=== PATIENT | female | born 1955 | race African-American/Black ===

== ENCOUNTER 2018-10-10 12:29 | Inpatient (IN) | payer OTHER ==
[~2018-10-10] VITALS: Ht 162.6 cm; Wt 102.1 kg
[2018-10-10 13:25] LABS: BASOPHILS % 0.5 % (0.0-2.0); EOSINOPHILS % 1.4 % (0.0-5.0); HEMATOCRIT. 35.6 % (36.0-48.0); HEMOGLOBIN. 12.6 g/dL (12.0-16.0); LYMPHOCYTES % 39.5 % (20.0-50.0); MEAN CORPUSCULAR HEMOGLOBIN 28.7 pg (28.0-32.0); MEAN CORPUSCULAR VOLUME 81.4 fL (81.0-99.0); MEAN PLATELET VOLUME 10.2 fl (7.4-10.4); MONOCYTES % 5.4 % (2.0-8.0); NEUTROPHILS % 53.2 % (40.0-76.0); PLATELET 116 x1000/uL (130-400); RED BLOOD CELL COUNT 4.37 mill/uL (4.2-5.4); RED CELL DISTRIBUTION WIDTH 14.4 % (11.6-14.6)
[2018-10-10 13:32] LABS: PROTHROMBIN TIME 10.1 sec (9.6-11.0)
[2018-10-10 13:39] LABS: CHLORIDE 111 mEq/L (98-107)
[2018-10-10 13:43] LABS: ETHANOL BLOOD < 10 mg/dL
[2018-10-10] MEDS ORDERED: ASPIRIN 325MG TABLET PO ONE (15:45)
[2018-10-10 16:10] LABS: CLARITY URINE CLEAR (CLEAR); COLOR URINE YELLOW (YELLOW); KETONES URINE NEGATIVE (NEGATIVE); LEUKOCYTE ESTERASE URINE 1+ (NEGATIVE); NITRITE URINE NEGATIVE (NEGATIVE); OCCULT BLOOD URINE NEGATIVE (NEGATIVE); PH URINE 7.5 (4.5-8.0); PROTEIN URINE NEGATIVE (NEGATIVE); SPECIFIC GRAVITY URINE 1.021 (1.005-1.030)
[2018-10-10] MEDS ORDERED: CLONIDINE 0.1MG TABLET PO PRN (16:15)
[2018-10-10] MEDS ORDERED: ACETAMINOPHEN 325MG TABLET PO PRN (16:15)
[2018-10-10] MEDS ORDERED: ONDANSETRON HCL 4MG/2ML INJ IV PRN (16:15)
[2018-10-10 16:25] LABS: *AMPHETAMINES SCREEN URINE NEGATIVE (NEGATIVE); *BARBITURATES SCREEN URINE NEGATIVE (NEGATIVE); *BENZODIAZEPINES SCREEN URINE NEGATIVE (NEGATIVE); *COCAINE SCREEN URINE NEGATIVE (NEGATIVE); METHADONE URINE SCREEN NEGATIVE (NEGATIVE); OPIATES URINE SCREEN NEGATIVE (NEGATIVE)
[2018-10-10 16:26] LABS: CANNABINOID URINE SCREEN NEGATIVE (NEGATIVE); PHENCYCLIDINE URINE SCREEN NEGATIVE (NEGATIVE)
[2018-10-10] MEDS: CHOLECALCIFEROL (D3) 1000 UNIT TABLET PO SCH (16:45)
[2018-10-10] MEDS ORDERED: CEPHALEXIN 250MG CAPSULE PO ONE (18:15)
[2018-10-10] MEDS: HYDROCODONE/ACETAMINOPHEN 5/325MG TABLET PO PRN (18:24)
[2018-10-10] MEDS ORDERED: CHOLECALCIFEROL (D3) 1000 UNIT TABLET PO SCH (18:30)
[2018-10-11] VITALS (7 sets, daily range): BP systolic 107–146; BP diastolic 73–80
[2018-10-11] MEDS ORDERED: CHOL100053 MT (00:54)
[2018-10-11] MEDS ORDERED: ATROV INH (00:54)
[2018-10-11] MEDS ORDERED: TRAM50TA3 MT (00:54)
[2018-10-11] MEDS ORDERED: INTE0.3K2 SQ (00:54)
[2018-10-11] MEDS ORDERED: RANI150T43 MT (00:54)
[2018-10-11] MEDS: ATORVASTATIN CALCIUM 40MG TABLET PO SCH ×2 (02:56→20:29)
[2018-10-11] MEDS: OMEPRAZOLE 20MG CAPSULE EXTENDED RELEASE PO SCH (07:00)
[2018-10-11] MEDS: ENOXAPARIN 30MG/0.3ML SYR SUBCUT SCH ×2 (08:46→20:29)
[2018-10-11] MEDS ORDERED: CLOPIDOGREL 75MG TABLET PO SCH (09:00)
[2018-10-11] MEDS ORDERED: LORA5TAB8 MT (09:52)
[2018-10-11] MEDS ORDERED: ATROV3 BOTHNSTRLS (09:52)
[2018-10-11 10:10] LABS: BASOPHILS % 0.7 % (0.0-2.0); EOSINOPHILS % 1.7 % (0.0-5.0); HEMATOCRIT. 37.9 % (36.0-48.0); HEMOGLOBIN. 13.2 g/dL (12.0-16.0); LYMPHOCYTES % 41.5 % (20.0-50.0); MEAN CORPUSCULAR HEMOGLOBIN 28.8 pg (28.0-32.0); MEAN CORPUSCULAR VOLUME 82.4 fL (81.0-99.0); MEAN PLATELET VOLUME 10.7 fl (7.4-10.4); MONOCYTES % 4.4 % (2.0-8.0); NEUTROPHILS % 51.7 % (40.0-76.0); PLATELET 121 x1000/uL (130-400); RED CELL DISTRIBUTION WIDTH 14.1 % (11.6-14.6)
[2018-10-11] MEDS ORDERED: IPRATROPIUM BROMIDE BOTHNSTRLS SCH (10:15)
[2018-10-11] MEDS ORDERED: LORATADINE MT SCH (10:15)
[2018-10-11 10:23] LABS: CHLORIDE 109 mEq/L (98-107)
[2018-10-11] MEDS: CHOLECALCIFEROL (D3) 1000 UNIT TABLET PO SCH (11:16)
[2018-10-11] MEDS: LORATADINE 10MG TABLET PO SCH (11:17)
[2018-10-11] MEDS: HYDROCODONE/ACETAMINOPHEN 5/325MG TABLET PO PRN ×2 (11:49→20:30)
[2018-10-11] MEDS ORDERED: IPRATROPIUM BROMIDE 0.03% NASAL SPRAY BOTHNSTRLS SCH (12:00)
[2018-10-11] MEDS ORDERED: GADOBENATE DIMEGLUMINE 529 MG/ML 10ML IV ONE (12:38)
[2018-10-12 04:00] VITALS: BP 112/73
[2018-10-12 05:41] LABS: HEMATOCRIT. 34.5 % (36.0-48.0); HEMOGLOBIN. 12.1 g/dL (12.0-16.0); MEAN CORPUSCULAR HEMOGLOBIN 28.7 pg (28.0-32.0); MEAN CORPUSCULAR VOLUME 81.8 fL (81.0-99.0); MEAN PLATELET VOLUME 11.1 fl (7.4-10.4); PLATELET 119 x1000/uL (130-400); RED BLOOD CELL COUNT 4.22 mill/uL (4.2-5.4); RED CELL DISTRIBUTION WIDTH 14.3 % (11.6-14.6)
[2018-10-12 06:01] LABS: CHLORIDE 109 mEq/L (98-107)
[2018-10-12] MEDS: OMEPRAZOLE 20MG CAPSULE EXTENDED RELEASE PO SCH (06:26)
[2018-10-12 08:00] VITALS: BP 132/57
[2018-10-12] MEDS: CHOLECALCIFEROL (D3) 1000 UNIT TABLET PO SCH (09:25)
[2018-10-12] MEDS: LORATADINE 10MG TABLET PO SCH (09:25)
[2018-10-12] MEDS: ENOXAPARIN 30MG/0.3ML SYR SUBCUT SCH (09:26)
[2018-10-12 10:56] LABS: PLATELET ESTIMATE DECREASED
[2018-10-12 12:00] VITALS: BP 136/79
[2018-10-12 15:29] VITALS: BP 158/75
== END 2018-10-12 15:50 | disposition home or self-care (01) | DRG 552 ==
LOC: ER 12:29 → 6WST 15:31 → EDBEDREQ 15:33 → ENRESERV 20:43 → 6WST 10-11 05:36
PROVIDERS: ADMIT Internal Medicine; ATTEND Internal Medicine
DX: M48.02 Spinal stenosis, cervical region (principal); D69.3 Immune thrombocytopenic purpura; G93.89 Other specified disorders of brain; G35 Multiple sclerosis; E66.9 Obesity, unspecified; K29.70 Gastritis, unspecified, without bleeding; E87.8 Other disorders of electrolyte and fluid balance, not elsewhere classified; E78.5 Hyperlipidemia, unspecified; I10 Essential (primary) hypertension; M54.16 Radiculopathy, lumbar region; M47.9 Spondylosis, unspecified; Z98.891 History of uterine scar from previous surgery; Z90.710 Acquired absence of both cervix and uterus; Z91.09 Other allergy status, other than to drugs and biological substances
CPT/HCPCS: 36415; 70553; 71045; 72156; 80048; 80061; 80305; 80320; 82962; 84443; 84484; 93005; 97162; 97165; 99285; A9577; J1650; G0480